=== PATIENT | male | born 1955 | race Caucasian/White ===

== ENCOUNTER 2017-11-19 09:29 | Emergency (ER) | payer OTHER, BC ==
[2017-11-19 09:31] VITALS: BP 150/93; PULSE 94; RESP 16; TEMP 98; O2SAT 99
[2017-11-19] MEDS ORDERED: [UNRECOGNIZED DRUG - REMARK] (09:46)
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
[2017-11-19] MEDS ORDERED: ORPHENADRINE INJ 60 MG/2 ML AMP IM ONE (10:00)
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
[2017-11-19] MEDS ORDERED: ROBA500T PO (11:09)
== END 2017-11-19 11:35 | disposition home or self-care (01) ==
LOC: NEPD 09:29
DX: S09.90XA Unspecified injury of head, initial encounter (principal); S16.1XXA Strain of muscle, fascia and tendon at neck level, initial encounter; V89.2XXA Person injured in unspecified motor-vehicle accident, traffic, initial encounter; I10 Essential (primary) hypertension
CPT/HCPCS: 70450; 72125; 96372; 99283; J2360